=== PATIENT | female | born 1935 | race Caucasian/White ===

== ENCOUNTER 2020-11-25 17:02 | Emergency (ER) | payer MEDICARE, OTHER ==
[2020-11-25] MEDS ORDERED: MIRALAX17 GM PO (18:19)
[2020-11-25] MEDS ORDERED: COLACE100 MG PO (18:19)
== END 2020-11-25 18:46 ==
LOC: ER1 17:02
DX: K62.2 Anal prolapse (principal); K21.9 Gastro-esophageal reflux disease without esophagitis; I10 Essential (primary) hypertension; Z90.710 Acquired absence of both cervix and uterus; Z88.0 Allergy status to penicillin
CPT/HCPCS: 99283